=== PATIENT | female | born 1980 | race African-American/Black ===

== ENCOUNTER 2021-04-28 09:42 | Emergency (ER) | payer MEDICAID ==
[~2021-04-28] VITALS: Ht 165.1 cm; Wt 100.0 kg
[2021-04-28] MEDS ORDERED: FAMOTIDINE 20MG/2ML VIAL IV STA (10:06)
[2021-04-28] MEDS ORDERED: ONDANSETRON HCL 4MG/2ML INJ IV STA (10:06)
[2021-04-28] MEDS ORDERED: SODIUM CHLORIDE 0.9% 1,000 ML IV ONE ×2 (10:15→11:45)
[2021-04-28 10:38] LABS: HEMOGLOBIN. 15.1 g/dL (12.0-16.0); MEAN CORPUSCULAR HEMOGLOBIN 29.1 pg (28.0-32.0); MEAN CORPUSCULAR VOLUME 88.7 fL (81.0-99.0); MEAN PLATELET VOLUME 8.6 fl (7.4-10.4); PLATELET 397 x1000/uL (130-400); RED BLOOD CELL COUNT 5.18 mill/uL (4.2-5.4); RED CELL DISTRIBUTION WIDTH 13.3 % (11.6-14.6)
[2021-04-28 10:49] LABS: CHLORIDE 95 mEq/L (98-107)
[2021-04-28 11:01] LABS: HCG SCREEN NEGATIVE
[2021-04-28] MEDS ORDERED: METOCLOPRAMIDE HCL 10MG/2ML VIAL IV ONE (11:15)
[2021-04-28 11:43] LABS: PLATELET ESTIMATE NORMAL
[2021-04-28 11:46] LABS: CHLORIDE 100 mEq/L (98-107)
[2021-04-28] MEDS ORDERED: FAMO-135 MT (12:19)
[2021-04-28] MEDS ORDERED: METO5TAB86 MT (12:19)
[2021-04-28 12:50] VITALS: BP 145/78
== END 2021-04-28 12:56 | disposition home or self-care (01) ==
LOC: ER 09:42
DX: K29.70 Gastritis, unspecified, without bleeding (principal); E11.65 Type 2 diabetes mellitus with hyperglycemia; Z79.4 Long term (current) use of insulin; R07.2 Precordial pain
CPT/HCPCS: 36415; 71045; 80048; 80053; 82010; 83690; 84484; 84703; 85025; 96361; 96374; 96375; 99284; J2405; J2765; J3490; J7030; J7040